=== PATIENT | female | born 1950 | race Caucasian/White ===

== ENCOUNTER 2017-08-02 08:54 | Emergency (ER) | payer OTHER ==
[2017-08-02] MEDS ORDERED: HYDROCODONE/APAP 10/325 TAB ONE (10:19)
[2017-08-02] MEDS ORDERED: IBUPROFEN 400 MG TAB ONE (10:20)
--- NOTE | 2017-08-02 11:31 | ER ---
Nurse's Notes [facility] Name: Letha Barnes Age: 67 yrs Sex: Female : 1950 Arrival Date: 08/02/2017 Time: 08:57 Bed 7 Private MD: OLIVER GARRETT Diagnosis: Fall due to bumping against object;Pain in left shoulder Presentation: 08/02 09:10 Presenting complaint: Patient states: L arm pain after tripping over a step and falling ss from a standing position. Injury occurred at [place] approx 1 hour ago. Denies hitting head. Decreased ROM to L upper extremity noted. Care prior to arrival: None. Mechanism of Injury: Fall from standing position. Trauma event details: Injury occurred in the [facility], Injury occurred: in a public building. Injury occurred: August 02, 2017. 09:10 Acuity: [place]ER[place] 3 ss 09:10 Method Of Arrival: Ambulatory ss 09:13 Transition of care: patient was not received from another setting of care. Onset of ss symptoms was August 02, 2017. Initial Sepsis Screen: Does the patient meet any 2 criteria? No. Patient's initial sepsis screen is negative. Does the patient have a suspected source of infection? No. Patient's initial sepsis screen is negative. Trauma Activation: Not Applicable Physician: ED Physician; Name: ; Notified At: ; Arrived At: Physician: General Surgeon; Name: ; Notified At: ; Arrived At: Physician: Radiology; Name: ; Notified At: ; Arrived At: Physician: Respiratory; Name: ; Notified At: ; Arrived At: Physician: Lab; Name: ; Notified At: ; Arrived At: Historical: - Allergies: 09:14 No Known Allergies; ss - Immunization history: Last tetanus immunization: "about five years ago". - Social history:: Smoking status: Patient/guardian denies using tobacco. - Family history:: not pertinent. Screenin:10 Abuse screen: Denies threats or abuse. Denies injuries from another. Tuberculosis ss screening: No symptoms or risk factors identified. 09:19 Nutritional screening: No deficits noted. Fall Risk None identified. tw2 Primary Survey: 09:10 A: Airway: patent. Breathing/Chest: Respiratory pattern: regular, Respiratory effort: ss spontaneous, unlabored. Circulation: Pulses: palpable right radial artery and left radial artery. Skin color: pink. Disability Alert. 10:10 Reassessment Airway Airway Patent Breathing/Chest Respiratory pattern Regular tw2 Respiratory effort Spontaneous Unlabored Breath sounds Clear Chest inspection Symmetrical Circulation Color [place] Temperature Warm Dry Disability Alert. Secondary Survey: 09:10 HEENT: No deficits noted. Gastrointestinal: No deficits noted. Musculoskeletal: Range ss of motion: limited in left shoulder. Assessment: 09:10 General: Appears in no apparent distress. comfortable, Behavior is calm, cooperative. ss Pain: Complains of pain in left arm. Neuro: Level of Consciousness is awake, alert, obeys commands. Respiratory: Respiratory effort is even, unlabored. Derm: Skin is pink, warm \\T\\ dry. Musculoskeletal: Range of motion: limited in left shoulder. 10:10 Reassessment: Patient appears in no apparent distress at this time. No changes from tw2 previously documented assessment. Patient and/or family updated on plan of care and expected duration. Pain level reassessed. Patient is alert, oriented x 3, equal unlabored respirations, skin warm/dry/pink. 11:22 Reassessment: Patient appears in no apparent distress at this time. No changes from tw2 previously documented assessment. Patient and/or family updated on plan of care and expected duration. Pain level reassessed. Patient is alert, oriented x 3, equal unlabored respirations, skin warm/dry/pink. 12:13 Reassessment: Patient appears in no apparent distress at this time. No changes from tw2 previously documented assessment. Patient and/or family updated on plan of care and expected duration. Pain level reassessed. Patient is alert, oriented x 3, equal unlabored respirations, skin warm/dry/pink. Vital Signs: 09:10 BP 149 / 78; Pulse 76; Resp 16; Temp 97.9(TE); Pulse Ox 100% on R/A; Weight 68.04 kg; ss Height 5 ft. 2 in. (157.48 cm); Pain 6/10; 10:10 BP 129 / 74; Pulse 63; Resp 17; Pulse Ox 98% on R/A; tw2 11:20 BP 125 / 62; Pulse 66; Resp 17; Pulse Ox 95% on R/A; Pain 4/10; tw2 09:10 Body Mass Index 27.44 (68.04 kg, 157.48 cm) [place] Coma Score: 09:10 Eye Response: spontaneous(4). Verbal Response: oriented(5). Motor Response: obeys ss commands(6). Total: 15. Trauma Score (Adult): 09:10 Eye Response: spontaneous(1); Verbal Response: oriented(1); Motor Response: obeys ss commands(2); Systolic BP: > 89 mm Hg(4); Respiratory Rate: 10 to 29 per min(4); [place] Score: 15; Trauma Score: 12 ED Course: 08:57 Patient arrived in ED. rg4 08:57 OLIVER GARRETT is Private Physician. rg4 09:10 Patient has correct armband on for positive identification. ss 09:10 Patient maintains SpO2 saturation greater than 95% on room air. ss 09:11 Triage completed. ss 09:14 Arm band placed on right wrist. ss 09:18 Katerina Osman, RN is Primary Nurse. tw2 09:18 Thermoregulation: warm blanket given to patient. tw2 09:24 Rafa Brown MD is Attending Physician. namrata 11:16 X-ray completed. Portable x-ray completed in exam room. Patient tolerated procedure mh1 well. 11:30 OLIVER GARRETT is Referral Physician. namrata 11:30 Jesse Simpson MD is Referral Physician. namrata 11:37 Awaiting for x-ray, Awaiting: prior to discharge, waiting on humerus xray results. tw2 12:08 Humerus Left XRAY In Process Unspecified. EDMS 12:13 No provider procedures requiring assistance completed. Patient did not have IV access tw2 during this emergency room visit. Administered Medications: 10:23 Drug: Worth 10 mg-325 mg 1 tabs Route: PO; tw2 11:31 Follow up: Response: No adverse reaction tw2 10:23 Drug: Ibuprofen 400 mg Route: PO; tw2 11:31 Follow up: Response: No adverse reaction; Pain is decreased tw2 Intake: 10:10 PO: 30ml (Water); Total: 30ml. tw2 Outcome: 11:30 Discharge ordered by . namrata 12:14 Discharged to home ambulatory, with family. tw2 12:14 Condition: stable 12:14 Patient's length of stay in the Emergency Department was greater than 2 hours. d/t imagingPatient's length of stay extended due to 12:14 Discharge instructions given to patient, family, Instructed on discharge instructions, tw2 follow up and referral plans. no drinking with medication, no driving heavy equipment, medication usage, Demonstrated understanding of instructions, follow-up care, medications, Prescriptions given X 2. 12:14 Patient left the ED. tw2 Signatures: Dispatcher [employer] EDRafa Quintero MD MD cha Harvey, Martha 1 Blessing Bruno, MARISABEL RN ss Katerina Osman RN RN tw2 Ruby Quiroz 4
--- NOTE | 2017-08-02 11:31 | EDPHYS ---
Physician Documentation [facility] Name: Letha Barnes Age: 67 yrs Sex: Female : 1950 Arrival Date: 08/02/2017 Time: 08:57 Bed 7 Private MD: OLIVER GARRETT ED Physician Rafa Brown HPI: 08/02 10:22 This 67 yrs old Female presents to ER via Ambulatory with complaints of Fall namrata Injury, Shoulder Injury. 10:22 Details of fall: The patient fell from an upright position, while walking. Onset: The namrata symptoms/episode began/occurred just prior to arrival. Associated injuries: The patient sustained anterior aspect of left shoulder, left bicep, posterior aspect of left shoulder and left tricep, decreased range of motion, painful injury, swelling. Severity of symptoms: At their worst the symptoms were moderate, in the emergency department the symptoms are unchanged. The patient has not experienced similar symptoms in the past. Historical: - Allergies: 09:14 No Known Allergies; ss - Immunization history: Last tetanus immunization: "about five years ago". - Social history:: Smoking status: Patient/guardian denies using tobacco. - Family history:: not pertinent. ROS: 10:22 Constitutional: Negative for fever, chills, and weight loss, Eyes: Negative for injury, namrata pain, redness, and discharge, ENT: Negative for injury, pain, and discharge, Neck: Negative for injury, pain, and swelling, Cardiovascular: Negative for chest pain, palpitations, and edema, Respiratory: Negative for shortness of breath, cough, wheezing, and pleuritic chest pain, Abdomen/GI: Negative for abdominal pain, nausea, vomiting, diarrhea, and constipation, Back: Negative for injury and pain, : Negative for injury, bleeding, discharge, and swelling, Skin: Negative for injury, rash, and discoloration, Neuro: Negative for headache, weakness, numbness, tingling, and seizure, Psych: Negative for depression, anxiety, suicide ideation, homicidal ideation, and hallucinations, Allergy/Immunology: Negative for hives, rash, and allergies, Endocrine: Negative for neck swelling, polydipsia, polyuria, polyphagia, and marked weight changes, Hematologic/Lymphatic: Negative for swollen nodes, abnormal bleeding, and unusual bruising. 10:22 MS/extremity: Positive for injury or acute deformity, decreased range of motion, pain, swelling, tenderness, of the anterior aspect of left shoulder, left bicep, posterior aspect of left shoulder and left tricep. Exam: 10:22 Constitutional: This is a well developed, well nourished patient who is awake, alert, namrata and in no acute distress. Head/Face: Normocephalic, atraumatic. Eyes: Pupils equal round and reactive to light, extra-ocular motions intact. Lids and lashes normal. Conjunctiva and sclera are non-icteric and not injected. Cornea within normal limits. Periorbital areas with no swelling, redness, or edema. ENT: Nares patent. No nasal discharge, no septal abnormalities noted. Tympanic membranes are normal and external auditory canals are clear. Oropharynx with no redness, swelling, or masses, exudates, or evidence of obstruction, uvula midline. Mucous membranes moist. Neck: Trachea midline, no thyromegaly or masses palpated, and no cervical lymphadenopathy. Supple, full range of motion without nuchal rigidity, or vertebral point tenderness. No Meningismus. Chest/axilla: Normal chest wall appearance and motion. Nontender with no deformity. No lesions are appreciated. Cardiovascular: Regular rate and rhythm with a normal S1 and S2. No gallops, murmurs, or rubs. Normal PMI, no JVD. No pulse deficits. Respiratory: Lungs have equal breath sounds bilaterally, clear to auscultation and percussion. No rales, rhonchi or wheezes noted. No increased work of breathing, no retractions or nasal flaring. Abdomen/GI: Soft, non-tender, with normal bowel sounds. No distension or tympany. No guarding or rebound. No evidence of tenderness throughout. Back: No spinal tenderness. No costovertebral tenderness. Full range of motion. Skin: Warm, dry with normal turgor. Normal color with no rashes, no lesions, and no evidence of cellulitis. Neuro: Awake and alert, GCS 15, oriented to person, place, time, and situation. Cranial nerves II-XII grossly intact. Motor strength 5/5 in all extremities. Sensory grossly intact. Cerebellar exam normal. Normal gait. Psych: Awake, alert, with orientation to person, place and time. Behavior, mood, and affect are within normal limits. 10:22 Musculoskeletal/extremity: Extremities: decreased ROM, pain, ROM: limited active range of motion, limited passive range of motion, Circulation is intact in all extremities. Sensation intact. Compartment Syndrome exam of affected extremity: is normal. DVT Exam: negative Homans' sign noted on exam, no appreciated bluish discoloration, no erythema, no increased warmth, pain, swelling, tenderness. Vital Signs: 09:10 BP 149 / 78; Pulse 76; Resp 16; Temp 97.9(TE); Pulse Ox 100% on R/A; Weight 68.04 kg; ss Height 5 ft. 2 in. (157.48 cm); Pain 6/10; 10:10 BP 129 / 74; Pulse 63; Resp 17; Pulse Ox 98% on R/A; tw2 11:20 BP 125 / 62; Pulse 66; Resp 17; Pulse Ox 95% on R/A; Pain 4/10; tw2 09:10 Body Mass Index 27.44 (68.04 kg, 157.48 cm) ss [place] Coma Score: 09:10 Eye Response: spontaneous(4). Verbal Response: oriented(5). Motor Response: obeys ss commands(6). Total: 15. Trauma Score (Adult): 09:10 Eye Response: spontaneous(1); Verbal Response: oriented(1); Motor Response: obeys ss commands(2); Systolic BP: > 89 mm Hg(4); Respiratory Rate: 10 to 29 per min(4); [place] Score: 15; Trauma Score: 12 MDM: 09:24 Patient medically screened. [facility] 08/02 10:16 Order name: Shoulder Left (2 View) XRAY 08/02 11:30 Order name: Humerus Left XRAY [facility] 08/02 10:13 Order name: CONS Physician Consult [facility] 08/02 11:46 Order name: RAD [facility] 08/02 10:18 Order name: Ice pack; Complete Time: 10:19 tw2 08/02 11:30 Order name: Sling; Complete Time: 11:31 [facility] Administered Medications: 10:23 Drug: Upperglade 10 mg-325 mg 1 tabs Route: PO; tw2 11:31 Follow up: Response: No adverse reaction tw2 10:23 Drug: Ibuprofen 400 mg Route: PO; tw2 11:31 Follow up: Response: No adverse reaction; Pain is decreased tw2 Disposition: 08/02/17 11:30 Discharged to Home. Impression: Fall due to bumping against object, Pain in left shoulder. - Condition is Stable. - Discharge Instructions: Fall Prevention and Home Safety, Shoulder Immobilizer, Shoulder Pain, Shoulder Pain, [id number]. - Prescriptions for Tylenol- Codeine #3 300-30 mg Oral Tablet - take 2 tablet by ORAL route every 6 hours As needed; 30 tablet. Motrin IB 200 mg Oral Tablet - take 2 tablet by ORAL route every 6 hours As needed as needed with food; 30 tablet. - Medication Reconciliation Form, Thank You Letter, Antibiotic Education, Prescription Opioid Use form. - Follow up: OLIVER GARRETT; When: 2 - 3 days; Reason: Recheck today's complaints, Continuance of care, Re-evaluation by your physician. Follow up: Dr. Jesse Simpson; When: 2 - 3 days; Reason: Recheck today's complaints, Continuance of care, Re-evaluation by your physician. - Problem is new. - Symptoms have improved. Signatures: Dispatcher [employer] Rafa Dyson MD MD cha Smirch, Shelby, RN RN ss Katerina Osman RN RN tw2
--- NOTE | 2017-08-02 11:46 | RAD REPORT ---
EXAM DESCRIPTION: RAD - Shoulder Left 2 View - 08/02/2017 11:15 am CLINICAL HISTORY: Left shoulder pain status post fall FINDINGS: No fracture or dislocation is seen. The bones are osteoporotic. 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
--- NOTE | 2017-08-02 12:20 | RAD REPORT ---
EXAM DESCRIPTION: RAD - Humerus Left - 08/02/2017 12:08 pm CLINICAL HISTORY: Left arm pain status post fall FINDINGS: No fracture is seen. The bones are osteoporotic
[2017-08-02 12:22] VITALS: TEMP 97.9
[2017-08-02 12:24] VITALS: BP 125/62; O2SAT 95
== END 2017-08-02 12:14 | disposition home or self-care (01) ==
LOC: ER 08:54 → ERHOLD 10:09 → UNDOADMIN 10:09 → ER 12:14
DX: M25.512 Pain in left shoulder (principal); W18.00XA Striking against unspecified object with subsequent fall, initial encounter; Y93.01 Activity, walking, marching and hiking; Y92.9 Unspecified place or not applicable
CPT/HCPCS: 99284

== ENCOUNTER → 2023-01-23 | Day surgery (SDC) | payer OTHER ==
--- NOTE | 2023-01-23 17:38 | RAD REPORT ---
EXAM DESCRIPTION: US - Guided FNA Non Breast - 01/23/2023 10:43 am CLINICAL HISTORY: Thyroid nodule ICD E05.90 COMPARISON: December 2022 ultrasound TECHNIQUE: Risks, benefits and alternatives of procedure explained to the patient and informed conse nt obtained. Skin and subcutaneous tissues anesthetized with lidocaine. Under sonographic guidance, five 25 gauge needle passes were obtained into the dominant nodule within the right lobe of the thyroid gland. Specimens given to pathology. Patient experienced no immediate complication IMPRESSION: Fine-needle aspiration of the 9 millimeter nodule within right lobe of thyroid gland
== END ==
LOC: FNA 09:28
PROVIDERS: ATTEND Internal Medicine Endocrinology, Diabetes & Metabolism
PROC: 0G9H3ZX Drainage of Right Thyroid Gland Lobe, Percutaneous Approach, Diagnostic (ICD-10-PCS; principal; 2023-01-23)
DX: E05.90 Thyrotoxicosis, unspecified without thyrotoxic crisis or storm (principal)
CPT/HCPCS: 88162